=== PATIENT | male | born 1965 | race Caucasian/White ===

== ENCOUNTER 2020-07-25 07:23 | Emergency (ER) | payer MEDICAID ==
[~2020-07-25] VITALS: Ht 177.8 cm; Wt 73.0 kg
[2020-07-25 07:42] VITALS: BP 153/97
== END 2020-07-25 11:16 | disposition home or self-care (01) ==
LOC: ER 07:23
DX: B82.0 Intestinal helminthiasis, unspecified (principal)
CPT/HCPCS: 99281